=== PATIENT | female | born 1995 | race American Indian/Alaskan Native ===

== ENCOUNTER 2020-11-26 19:31 | Emergency (ER) | payer SELFPAY | END 2020-11-27 04:42 | disposition left against medical advice (07) | LOC: ED 19:31 | DX: N39.0 Urinary tract infection, site not specified (principal); Z53.21 Procedure and treatment not carried out due to patient leaving prior to being seen by health care provider ==

== ENCOUNTER 2021-05-05 18:53 | Emergency (ER) | payer SELFPAY ==
[2021-05-05 19:28] VITALS: BP 124/82
== END 2021-05-06 00:14 | disposition left against medical advice (07) ==
LOC: ED 18:53
DX: Z04.1 Encounter for examination and observation following transport accident (principal); Z53.21 Procedure and treatment not carried out due to patient leaving prior to being seen by health care provider; V89.2XXA Person injured in unspecified motor-vehicle accident, traffic, initial encounter; Y93.89 Activity, other specified; Y92.89 Other specified places as the place of occurrence of the external cause; Y99.8 Other external cause status

== ENCOUNTER 2021-05-20 18:50 | Emergency (ER) | payer SELFPAY ==
[2021-05-20 20:54] VITALS: BP 127/88
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
== END 2021-05-21 01:15 | disposition home or self-care (01) ==
LOC: ED 18:50
DX: S16.1XXA Strain of muscle, fascia and tendon at neck level, initial encounter (principal); V89.2XXA Person injured in unspecified motor-vehicle accident, traffic, initial encounter; Y93.89 Activity, other specified; Y92.89 Other specified places as the place of occurrence of the external cause; Y99.8 Other external cause status
CPT/HCPCS: 99282